=== PATIENT | male | born 2000 | race Caucasian/White ===

== ENCOUNTER 2024-07-05 20:21 | Emergency (ER) | payer BC ==
[2024-07-05] MEDS: ONDANSETRON 4 MG/2 ML VIAL IM STA (21:01)
[2024-07-05] MEDS: GLUCAGON 1 MG/ML VIAL IM STA (21:02)
--- NOTE | 2024-07-05 21:10 | ED ---
Skin/Abscess/FB HPI - General Chief complaint: Skin/Abscess/Foreign Body Stated complaint: Food lodged in throat Time Seen by Provider: 07/05/24 20:41 Source: patient, RN notes reviewed Mode of arrival: ambulatory Limitations: no limitations - History of Present Illness Initial comments: 23-year-old male presenting to the ER for evaluation of foreign body sensation. States 1 hour ago he was eating boneless chicken and he believes he a piece of chicken became lodged in his esophagus. Believes he did not chew the chicken well enough. States he has not been able to swallow his spit since the incident. Denies difficulty breathing. Denies any medical conditions such as diabetes. - Related Data Allergies Allergy/AdvReac Type Severity Reaction Status Date / Time No Known Allergies Allergy Verified 07/05/24 20:27 Review of Systems ROS Statement: Those systems with pertinent positive or pertinent negative responses have been documented in the HPI. ROS Other: All systems not noted in ROS Statement are negative. Past Medical History Past Medical History: No Reported History History of Any Multi-Drug Resistant Organisms: None Reported Past Surgical History: No Surgical Hx Reported Past Psychological History: No Psychological Hx Reported Smoking Status: Never smoker Past Alcohol Use History: None Reported Past Drug Use History: None Reported General Exam Limitations: no limitations General appearance: alert, in no apparent distress Head exam: Present: atraumatic, normocephalic, normal inspection Eye exam: Present: normal appearance, PERRL, EOMI. Absent: scleral icterus, conjunctival injection, periorbital swelling ENT exam: Present: normal exam, normal oropharynx, mucous membranes moist Neck exam: Present: normal inspection. Absent: tenderness, meningismus, lymphadenopathy Respiratory exam: Present: normal lung sounds bilaterally. Absent: respiratory distress, wheezes, rales, rhonchi, stridor Cardiovascular Exam: Present: regular rate, normal rhythm, normal heart sounds. Absent: systolic murmur, diastolic murmur, rubs, gallop, clicks Neurological exam: Present: alert, oriented X3 Psychiatric exam: Present: normal affect, normal mood Skin exam: Present: warm, dry, intact, normal color. Absent: rash Course Vital Signs 07/05/24 20:23 Temperature 98.9 F Pulse Rate 73 Respiratory 20 Rate Blood Pressure 185/80 O2 Sat by Pulse 99 Oximetry Medical Decision Making - Medical Decision Making Was pt. sent in by a medical professional or institution (SALUD Troncoso, MANAGER CONCRETE, urgent care, hospital, or assisted...) When possible be specific @ -No Did you speak to anyone other than the patient for history (EMS, parent, family, police, friend...)? What history was obtained from this source @ -No Did you review nursing and triage notes (agree or disagree)? Why? @ -I reviewed and agree with nursing and triage notes Were old charts reviewed (outside hosp., previous admission, EMS record, old EKG, old radiological studies, urgent care reports/EKG's, assisted records)? Report findings @ -No old charts were reviewed Differential Diagnosis (chest pain, altered mental status, abdominal pain women, abdominal pain men, vaginal bleeding, weakness, fever, dyspnea, syncope, headache, dizziness, GI bleed, back pain, seizure, CVA, palpatations, mental health, musculoskeletal)? @ -Not applicable EKG interpreted by me (3pts min.). @ -None X-rays interpreted by me (1pt min.). @ -X-ray soft tissue neck no suspicious foreign body evident CT interpreted by me (1pt min.). @ -None done U/S interpreted by me (1pt. min.). @ -None done What testing was considered but not performed or refused? (CT, X-rays, U/S, labs)? Why? @ -None What meds were considered but not given or refused? Why? @ -None Did you discuss the management of the patient with other professionals (professionals i.e. SALUD Troncoso, MANAGER CONCRETE, lab, RT, psych nurse, social work program coordinator, chain saw mechanic, teacher, geospatial program management officer, disease case manager rn)? Give summary @ -No Was smoking cessation discussed for >3mins.? @ -No Was critical care preformed (if so, how long)? @ -No Were there social determinants of health that impacted care today? How? (Homelessness, low income, unemployed, alcoholism, drug addiction, transportation, low edu. Level, literacy, decrease access to med. care, assisted, rehab)? @ -No Was there de-escalation of care discussed even if they declined (Discuss DNR or withdrawal of care, Hospice)? DNR status @ -No What co-morbidities impacted this encounter? (DM, HTN, Smoking, COPD, CAD, Cancer, CVA, ARF, Chemo, Hep., AIDS, mental health diagnosis, sleep apnea, morbid obesity)? @ -None Was patient admitted / discharged? Hospital course, mention meds given and r oute, prescriptions, significant lab abnormalities, going to OR and other pertinent info. @ -Discharge. This is a 23-year-old male presenting for foreign body sensation in throat x 1 hour after eating boneless chicken. Patient is well-appearing, no acute distress. He is hypertensive however otherwise vitals within acceptable limits. No difficulty breathing. Patient is spitting secretions into a bucket as he states he is unable to swallow. He was unable to tolerate soda. Patient was then given glucagon and Zofran. X-ray soft tissue neck reveals no suspicious foreign body evident. Upon reevaluation, patient reports pain has improved however continues to experience foreign body sensation. Discussed with patient we do not have GI on-call tonight. Offered transfer to a different hospi [facility] however patient opts for discharge and states he will return tomorrow if symptoms do not improve. Discussed it is likely that food bolus will pass on its own however return precautions and follow-up care discussed. Case was discussed with the ED attending Dr. Myers. Undiagnosed new problem with uncertain prognosis? @ -No Drug Therapy requiring intensive monitoring for toxicity (Heparin, Nitro, Insulin, Cardizem)? @ -No Were any procedures done? @ -No Diagnosis/symptom? @ -Foreign body sensation in throat Acute, or Chronic, or Acute on Chronic? @ -Acute Uncomplicated (without systemic symptoms) or Complicated (systemic symptoms)? @ -Uncomplicated Side effects of treatment? @ -No Exacerbation, Progression, or Severe Exacerbation? @ -No Poses a threat to life or bodily function? How? (Chest pain, [place], MA, pneumonia, PE, COPD, DKA, ARF, appy, cholecystitis, CVA, Diverticulitis, Homicidal, Suicidal, threat to staff... and all critical care pts) @ -No Disposition Clinical Impression: Foreign body sensation in throat Disposition: HOME SELF-CARE Condition: Stable Additional Instructions: Please return to the Emergency Department if symptoms worsen or any other concerns. Is patient prescribed a controlled substance at d/c from ED?: No Referrals: None,Stated [Primary Care Provider] - 1-2 days Time of Disposition: 21:45
--- NOTE | 2024-07-05 21:18 | XR ---
EXAMINATION TYPE: XR soft tissue neck DATE OF EXAM: 07/05/2024 9:12 PM COMPARISON: None. CLINICAL INDICATION: Male, 23 years old with history of foreign body ingestion, pain. pt concerned a piece of chicken is stuck in throat x 1 hour, pt spitting saliva at triage ,difficulty swallowing TECHNIQUE: 2 view(s) obtained. FINDINGS: No radiopaque foreign body is evident within the field of view. Prevertebral space is normal. Epiglottis is unremarkable. Hypopharynx is visualized appears normal. S ubglottic airway is normal. IMPRESSION: 1. No suspicious radiopaque foreign bodies evident. [facility], Workstation: [email or web address], 07/05/2024 9:16 PM
[2024-07-05 22:02] VITALS: BP 150/93; PULSE 64; RESP 17; TEMP 98.5
== END 2024-07-05 22:02 | disposition home or self-care (01) ==
LOC: EC 20:21
DX: R09.A2 Foreign body sensation, throat (principal); W44.F3XA Food entering into or through a natural orifice, initial encounter
CPT/HCPCS: 70360; 99283; 96372; J1610; J2405